=== PATIENT | female | born 1995 | race Caucasian/White ===

== ENCOUNTER 2017-04-05 16:32 | Emergency (ER) | payer SELFPAY ==
[~2017-04-05] VITALS: Ht 152.4 cm; Wt 72.5 kg
[2017-04-05 16:33] VITALS: BP 130/85; PULSE 96; RESP 20; TEMP 98.6; O2SAT 99
--- NOTE | 2017-04-05 17:07 | PD ---
HPI Chief Complaint: Oral / Dental Pain or Problem Time Seen by Provider: 16:59 Travel History International Travel<30 days: No Contact w/Intl Traveler<30days: No Traveled to known affect area: No History of Present Illness HPI 21-year-old female presents to the emergency room for evaluation of right lower second molar tooth pain. Patient denies any fevers, chills, malaise, chest pain , shortness breath, nausea or vomiting, diarrhea, abdominal pain or lightheadedness. The tooth is broken and lateral aspect of the tooth missing. There is no signs or symptoms of infection including fever, erythema or purulent drainage. Patient has full range of motion of neck, patient states the pain radiates to her right ear. Right ear evaluated and tympanic membrane visualized. TM pearly lewis and intact. There are no swollen lymph nodes. The patient denies any pharyngitis, cough or runny nose. History Past Medical Histgory LMP: 03/22/17 Allergies-Medications (Allergen,Severity, Reaction): Coded Allergies: No Known Allergies (Unverified , 04/05/17) Review of Systems Except as stated in HPI: all other systems reviewed are Neg HENT: Positive: Dental Difficulties (right lower second molar pain) Physical Exam Narrative GENERAL: Well-nourished well-developed 21-year-old white female in no acute distress. SKIN: Focused skin assessment warm/dry. HEAD: Atraumatic. Normocephalic. EYES: Pupils equal and round. No scleral icterus. No injection or drainage. ENT: No nasal bleeding or discharge. Mucous membranes pink and moist. Bilateral tympanic membrane pearly lewis. NECK: Trachea midline. No JVD. CARDIOVASCULAR: Regular rate and rhythm. No murmur appreciated. RESPIRATORY: No accessory muscle use. Clear to auscultation. Breath sounds equal bilaterally. GASTROINTESTINAL: Abdomen soft, non-tender, nondistended. Hepatic and splenic margins not palpable. MUSCULOSKELETAL: No obvious deformities. No clubbing. No cyanosis. No edema. NEUROLOGICAL: Awake and alert. No obvious cranial nerve deficits. Motor grossly within normal limits. Normal speech. Data Data Last Documented VS Vital Signs Date Time Temp Pulse Resp B/P (MAP) Pulse Ox O2 Delivery O2 Flow Rate FiO2 04/05/17 16:33 98.6 96 20 130/85 (100) 99 Room Air MDM Medical Screen Exam Complete: Yes Emergency Medical Condition: No Differential Diagnosis Dentalgia, oral abscess, otitis media Narrative Course A medical screening exam was performed: At the time of evaluation the presenting medical condition was determined not to be of an emergent nature. The patient was given the option of receiving additional care, but declined. Patient was given options for additional community resources from which to obtain care. The Patient Has Been advised to seek medical attention for their presenting complaint. The patient has been advised to return to the ER at any time if an emergent condition develops. Patient advised to follow-up with dentist concerning dentalgia. Patient given information on [facility] for dental needs. Primary Impression: Encounter for medical screening examination Condition: Stable Toma Arnold Apr 05, 2017 17:07
== END 2017-04-05 17:11 | disposition left against medical advice (07) ==
LOC: NEPK 16:32
DX: K08.89 Other specified disorders of teeth and supporting structures (principal); Z72.0 Tobacco use
CPT/HCPCS: 99281